=== PATIENT | female | born 2000 | race Caucasian/White ===

== ENCOUNTER 2020-06-12 05:48 | Inpatient (IN) ==
[2020-06-12] MEDS ORDERED: ONDANSETRON 4 MG/2 ML VIAL IV PRN (05:55)
[2020-06-12 06:33] LABS: Basophils # 0.1 10*3/uL (0.0-0.2); Basophils % 0.4 % (0.0-0.8); Eosinophils # 0.1 10*3/uL (0.0-0.87); Eosinophils % 0.7 % (0.00-10.9); Hematocrit 36.5 VOL% (35.7-47.0); Hemoglobin 12.7 GM/DL (12.0-16.0); Immature Granulocytes % 0.9 %; Immature Granulocytes Absolute 0.13 #; Lymphocytes # 2.8 10*3/uL (1.4-4.0); Lymphocytes % 19.8 % (21.3-54.2); Mean Corpuscular HGB Conc 34.8 GM/DL (32-36); Mean Corpuscular Volume 84.9 FL (87-102); Mean Platelet Volume 10.4 FL (9.6-12.0); Monocytes % 7.7 % (1.7-12.7); Neutrophils % 70.5 % (38.7-73.9); Platelet Count 298 T/CUMM (130-400); Red Cell Distribution Width 12.9 % (9.3-17.3); White Blood Count 14.1 T/CUMM (4-12)
[2020-06-12] MEDS: LACTATED RINGERS 1,000 ML IV SCH ×2 (06:38→20:33)
[2020-06-12 06:58] LABS: Alanine Aminotransferase 18 U/L (13-56); Albumin 2.7 G/DL (3.4-5.0); Alkaline Phosphatase 167 U/L (45-117); Aspartate Amino Transferase 18 U/L (0-37); Bilirubin,Total < 0.39 MG/DL (0.2-1.0); Blood Urea Nitrogen 9 MG/DL (7-18); Calcium 8.6 MG/DL (8.5-10.1); Estimated Glom Filtration Rate 151 ML/MIN; Glucose 77 MG/DL (74-106); Total Protein 6.9 G/DL (6.4-8.3)
[2020-06-12] MEDS ORDERED: OXYTOCIN/LR 20 UNIT/1,000 ML BAG IV SCH (07:00)
[2020-06-12] MEDS ORDERED: diphenhydrAMINE 50 MG/1 ML VIAL IV PRN ×2 (20:23)
[2020-06-12] MEDS ORDERED: NALOXONE 0.4 MG/ML VIAL IV PRN (20:23)
[2020-06-12] MEDS ORDERED: hydrOXYzine HCL 25 MG/1 ML VIAL IM PRN (20:23)
[2020-06-12] MEDS ORDERED: ONDANSETRON 4 MG/2 ML VIAL IV ONE (20:23)
[2020-06-12] MEDS ORDERED: CITRIC ACID/SODIUM CITRATE 30 ML UDCUP PO ONE (20:23)
[2020-06-12] MEDS ORDERED: LACTATED RINGERS 250 ML IV PRN (20:23)
[2020-06-12] MEDS ORDERED: ePHEDrine 50 MG/ML VIAL IV PRN (20:23)
[2020-06-12] MEDS ORDERED: PROMETHAZINE 25 MG/1 ML VIAL IM ONE (20:23)
[2020-06-12] MEDS ORDERED: FAMOTIDINE 20 MG/2 ML VIAL IV ONE (20:23)
[2020-06-12] MEDS ORDERED: LACTATED RINGERS 1,000 ML IV SCH (20:30)
[2020-06-12] MEDS: fentaNYL 2 MCG/ROPIV 0.2% EPID 100 ML EPIDURAL SCH (21:30)
[2020-06-13 01:33] LABS: Bilirubin,Urine Negative (Negative); Blood, Urine Negative (Negative); Glucose,Urine (UA) Negative (Negative); Ketones,Urine 5 mg/dL (Negative); Mucus,Urine Occasional /LPF (Occasional); Nitrite,Urine Negative (Negative); Protein,Urine Negative; Squamous Epithelial Cell,Urine Occasional /HPF (0-10); Urine Appearance CLEAR (Clear); Urine Color Straw (Yellow); Urine Specific Gravity 1.006 (1.001-1.035); Urine Urobilinogen < 2.0 EU/DL (0.2-1.0); WBC,Urine 1 /HPF (0-6)
[2020-06-13] MEDS: fentaNYL 2 MCG/ROPIV 0.2% EPID 100 ML EPIDURAL SCH (03:31)
[2020-06-13] MEDS ORDERED: TRANEXAMIC ACID 1,000 MG/10 ML VIAL ONE (08:01)
[2020-06-13] MEDS ORDERED: miSOPROStoL 200 MCG TABLET ONE (08:01)
[2020-06-13] MEDS ORDERED: METHYLERGONOVINE 0.2 MG/1 ML AMP ONE (08:01)
[2020-06-13] MEDS ORDERED: CARBOPROST TROMETHAMINE 250 MCG/ML AMP IM ONE (08:02)
[2020-06-13] MEDS ORDERED: BENZOCAINE 20%/MENTHOL 0.5% SPRAY 56 GM CAN TOP PRN (09:09)
[2020-06-13] MEDS ORDERED: ONDANSETRON 4 MG/2 ML VIAL IV PRN (09:09)
[2020-06-13] MEDS ORDERED: RHO(D) IMMUNE GLOBULIN 300 MCG SYRINGE IM ONE (09:09)
[2020-06-13] MEDS ORDERED: OXYTOCIN/LR 20 UNIT/1,000 ML BAG IV ONE (09:09)
[2020-06-13] MEDS ORDERED: MEASLES/MUMPS/RUBELLA VACCINE 0.5 ML VIAL SUBCUT ONE (09:09)
[2020-06-13] MEDS ORDERED: HYDROCORTISONE 2.5% RECTAL CREAM 30 GM TUBE TOP PRN (09:09)
[2020-06-13] MEDS ORDERED: DIPH/TET/ACEL PERT BOOSTER VACCINE 0.5 ML VIAL IM ONE (09:09)
[2020-06-13] MEDS ORDERED: oxyCODONE/ACETAMINOPHEN 5-325 MG TABLET PO PRN ×2 (09:09)
[2020-06-13] MEDS ORDERED: ACETAMINOPHEN 325 MG TABLET PO PRN (09:09)
[2020-06-13] MEDS ORDERED: LANOLIN 50% CREAM 0.3 OZ TUBE TOP PRN (09:09)
[2020-06-13] MEDS ORDERED: BISACODYL 10 MG SUPP RECTAL PRN (09:09)
[2020-06-13] MEDS ORDERED: WITCH HAZEL PADS 100/JAR TOP PRN (09:09)
[2020-06-13 09:19] LABS: Cord Arterial Blood HCO3 22.5 MMOL/L
[2020-06-13 09:24] LABS: Cord Venous Blood HCO3 22.7 MMOL/L; Cord Venous Blood PCO2 37.7 MMHG; Cord Venous Blood PO2 33.2
[2020-06-13] MEDS: IBUPROFEN 800 MG TABLET PO PRN (17:17)
[2020-06-13] MEDS: DOCUSATE SODIUM 100 MG CAPSULE PO SCH (21:18)
[2020-06-14 07:03] LABS: Basophils # 0.1 10*3/uL (0.0-0.2); Basophils % 0.3 % (0.0-0.8); Eosinophils # 0.2 10*3/uL (0.0-0.87); Eosinophils % 0.8 % (0.00-10.9); Hematocrit 31.2 VOL% (35.7-47.0); Hemoglobin 10.6 GM/DL (12.0-16.0); Lymphocytes # 3.9 10*3/uL (1.4-4.0); Mean Corpuscular Volume 86.9 FL (87-102); Mean Platelet Volume 10.3 FL (9.6-12.0); Monocytes % 8.3 % (1.7-12.7); Neutrophils % 70.6 % (38.7-73.9); Platelet Count 234 T/CUMM (130-400); Red Blood Count 3.59 MC/CUMM (3.8-5.5); Red Cell Distribution Width 13.3 % (9.3-17.3); White Blood Count 20.3 T/CUMM (4-12)
[2020-06-14 07:12] LABS: Hypochromasia 1+; Microcytosis 1+; Platelet Estimate Adequate
[2020-06-14] MEDS: DOCUSATE SODIUM 100 MG CAPSULE PO SCH ×2 (09:15→19:35)
[2020-06-14] MEDS: IBUPROFEN 800 MG TABLET PO PRN (19:35)
[2020-06-15] MEDS: DOCUSATE SODIUM 100 MG CAPSULE PO SCH ×2 (02:37→08:37)
[2020-06-15] MEDS: IBUPROFEN 800 MG TABLET PO PRN (08:37)
[2020-06-15 09:30] VITALS: BP 123/78
== END 2020-06-15 11:40 | disposition home or self-care (01) | DRG 768 ==
LOC: N.LD 05:48 → N.OB 06-13 13:10
PROVIDERS: ADMIT Obstetrics & Gynecology; ATTEND Obstetrics & Gynecology